=== PATIENT | female | born 1950 | race Caucasian/White ===

== ENCOUNTER 2016-08-14 12:47 | Day surgery (SDC) | payer MEDICARE, OTHER ==
[~2016-08-14 12:47] MED LIST: ALENDRONATE SOD70 M2 PO; ASPIR 8181 M1 PO; COZAAR25 MG; CPAP; ESCITALOPRAM OX20 M1 PO; FLAX SEED OIL1000 M2 PO; FLONASE ALLERG9.9 ML; FOSAMAX40 MG; GLUCOPHAGE500 M3 PO; GLUCOSAMINE CH1 EAC7 PO; LIPITOR10 M1 PO; LOSARTAN POTASS25 M1 PO; METFORMIN HCL500 M3 PO; MULTIVITAMIN + IRON; NORVASC2.5 M1 PO; PHENTERMINE HCL15 M1 PO; PREVACID30 M2 PO; PROTONIX40 M2 PO; TOPAMAX50 M3 PO; VITAMIN D31000 UNI3 PO; WELLBUTRIN XL150 M1 PO
== END 2016-08-14 17:39 ==
LOC: SRG 12:47 → SHSB 12:54 → ORE 15:00 → SHSB 16:30
PROC: 0QSP04Z Reposition Left Metatarsal with Internal Fixation Device, Open Approach (ICD-10-PCS; principal; 2016-08-14)
DX: M20.12 Hallux valgus (acquired), left foot (principal); I25.10 Atherosclerotic heart disease of native coronary artery without angina pectoris; F32.9 Major depressive disorder, single episode, unspecified; K21.9 Gastro-esophageal reflux disease without esophagitis; I10 Essential (primary) hypertension; E66.9 Obesity, unspecified; M81.0 Age-related osteoporosis without current pathological fracture; Z68.34 Body mass index [BMI] 34.0-34.9, adult; Z79.82 Long term (current) use of aspirin; Z79.84 Long term (current) use of oral hypoglycemic drugs; Z79.899 Other long term (current) drug therapy; Z88.1 Allergy status to other antibiotic agents; Z88.2 Allergy status to sulfonamides; Z88.5 Allergy status to narcotic agent; Z88.7 Allergy status to serum and vaccine; Z88.8 Allergy status to other drugs, medicaments and biological substances; Z91.048 Other nonmedicinal substance allergy status; Z87.891 Personal history of nicotine dependence; Z90.49 Acquired absence of other specified parts of digestive tract; Z90.710 Acquired absence of both cervix and uterus; Z90.721 Acquired absence of ovaries, unilateral; Z98.890 Other specified postprocedural states
CPT/HCPCS: J0690; J1030